=== PATIENT | female | born 1955 | race Two or more races ===

== ENCOUNTER 2022-09-25 11:25 | Inpatient (IN) | payer OTHER ==
[~2022-09-25] VITALS: Ht 162.6 cm; Wt 96.6 kg
[2022-09-26] MEDS ORDERED: CONZIP100 MG PO (11:31)
[2022-09-26] MEDS ORDERED: PROBIOTIC250 MG PO (11:32)
[2022-09-26] MEDS ORDERED: OMEGA 3-6-9 11200 M1 PO (11:32)
[2022-09-26] MEDS ORDERED: VITAMIN C100 MG PO (11:32)
[2022-09-26] MEDS ORDERED: B12 ACTIVE1000 MCG PO (11:32)
== END 2022-10-03 10:01 | disposition home or self-care (01) | DRG 741 ==
LOC: O/R 10-02 06:39 → SURH 10-02 09:45 → OB/GYN 10-02 17:49
PROVIDERS: ADMIT Obstetrics & Gynecology Gynecologic Oncology; ATTEND Obstetrics & Gynecology Gynecologic Oncology
PROC: 0UT74ZZ Resection of Bilateral Fallopian Tubes, Percutaneous Endoscopic Approach (ICD-10-PCS; 2022-10-02)
PROC: 0UT24ZZ Resection of Bilateral Ovaries, Percutaneous Endoscopic Approach (ICD-10-PCS; 2022-10-02)
PROC: 07BC4ZZ Excision of Pelvis Lymphatic, Percutaneous Endoscopic Approach (ICD-10-PCS; 2022-10-02)
PROC: 07BD4ZZ Excision of Aortic Lymphatic, Percutaneous Endoscopic Approach (ICD-10-PCS; 2022-10-02)
PROC: 0UT94ZZ Resection of Uterus, Percutaneous Endoscopic Approach (ICD-10-PCS; principal; 2022-10-02 09:45)
DX: C53.0 Malignant neoplasm of endocervix (principal)

== ENCOUNTER 2024-05-12 15:36 | Inpatient (IN) | payer OTHER ==
[~2024-05-12] VITALS: Ht 162.6 cm; Wt 72.6 kg
[~2024-05-12 15:36] MED LIST: B12 ACTIVE1000 MCG PO; CONZIP100 MG PO; OMEGA 3-6-9 11200 M1 PO; PROBIOTIC250 MG PO; VITAMIN C100 MG PO
--- NOTE | 2024-05-12 16:34 | NUR ---
PTE ALERTA Y ORIENTADA X3 REFIERE QUE FUE REFERIDA POR LA HEMATOLOGA DRA. ROSALEE MARIO. SE GAV[place] SV Y SE UBICA
[2024-05-12] MEDS ORDERED: PIPERACILLIN/TAZOBACTAM SODIUM 3.375 GM VIAL IV ONE ×2 (17:00→17:06)
[2024-05-12] MEDS ORDERED: FAMOtidine 10 MG/ML (4ML VIAL) IV ONE (17:00)
[2024-05-12] MEDS ORDERED: MEPERIDINE HCL/PF 25 MG/ML VIAL IV ONE (17:00)
[2024-05-12] MEDS ORDERED: FAMOTIDINE/PF 20 MG/2 ML VIAL ONE (17:06)
--- NOTE | 2024-05-12 17:40 | NUR ---
SE LE ORIENTA A PACIENTE SOBRE LA ORDEN MEDICA, REFIERE ENTENDER LAS MISMAS. SE CANALIZA Y SE LE COLOCA EL IVF'S, SE LE GAVIOTA LAS MUETRAS Y SE LE ADMINISTRAN LOS MEDICAMENTOS JANET LA ORDEN MEDICA.
[2024-05-12 18:16] LABS: ALBUMIN 2.2 gm/dL (3.4-5.0); BILIRUBIN TOTAL 0.71 mg/dL (0.3-1.2); CALCIUM 9.6 mg/dL (8.5-10.1); CREATININE SERUM 1.92 mg/dL (0.55-1.02); GFR 25.97; GLOBULINA 4.9 G/DL (2.4-3.5); POTASSIUM 4.88 mEq/L (3.5-5.1); TOTAL PROTEIN 7.1 gm/dL (6.4-8.2)
[2024-05-12 18:26] LABS: INR 1.21
[2024-05-12 18:42] LABS: HEMATOCRIT 26.3 % (36.0-45.00); MEAN CELL VOLUME 79.1 fL (80.00-100.00); MEAN CORPUSCULAR HGB CONC 32.8 g/dl (32.0-36.0); PLATELET COUNT 330 K/uL (150-450); RED BLOOD COUNT 3.33 M/uL (4.00-6.00)
[2024-05-12 18:43] LABS: MEAN CORPUSCULAR HEMOGLOBIN 25.8 pg (27.00-32.0); RED CELL DISTRIBUTION WIDTH 18.3 % (11.5-14.5)
[2024-05-12 18:45] LABS: HEMOGLOBIN 8.6 g/dL (12.0-15.00)
[2024-05-12 18:49] LABS: PARTIAL THROMBOPLASTIN TIME 41.7 SECONDS (22.0-34.0)
[2024-05-12] MEDS ORDERED: DOLOGESIC 500-1 EACH PO (20:33)
[2024-05-12 21:21] LABS: PH,URINE 5.5 (5.0-8.0); URINE APPEARANCE Turbid; URINE BILIRRUBIN Small (NEGATIVE); URINE BLOOD Large; URINE COLOR Dark Yellow; URINE GLUCOSE Negative (NEGATIVE); URINE KETONE Trace (NEGATIVE); URINE LEUKOCYTE Large; URINE NITRATE Negative
[2024-05-12 21:25] LABS: URINE EPITHELIAL CELLS 48.7 uL (0.0-38.8); URINE RBC 456.5 uL (0.0-20.8); URINE WBC 792.1 uL (0.0-23.2)
[2024-05-12 21:35] LABS: URINE BACTERIA > 9821.5 uL (0.0-1933); URINE PROTEIN 100 (NEGATIVE)
[2024-05-12] MEDS ORDERED: 0.9 % SODIUM CHLORIDE 1,000 ML IV SCH (22:30)
[2024-05-12] MEDS ORDERED: MORPHINE SULFATE 2 MG/ML SYRINGE IV PRN (22:45)
[2024-05-12] MEDS ORDERED: 0.9 % SODIUM CHLORIDE 1,000 ML IV ONE (22:45)
[2024-05-12] MEDS ORDERED: ACETAMINOPHEN 500 MG GEL..CAP PO PRN (22:45)
[2024-05-13] MEDS ORDERED: PIPERACILLIN/TAZOBACTAM SODIUM 2.25 GM in DEXTROSE 5 % IN WATER 50 ML IV SCH
[2024-05-13 01:51] VITALS: BP 100/67; O2SAT 100
[2024-05-13] MEDS ORDERED: ENOXAPARIN SODIUM 40 MG/0.4 ML SYRINGE SUBCUTANEO SCH (09:00)
[2024-05-13] MEDS ORDERED: IRON FUM,PS/FOLIC/BCOMP,C NO.9 1 CAP CAPSULE PO SCH (09:00)
[2024-05-13] MEDS ORDERED: FAMOTIDINE/PF 20 MG in 0.9 % SODIUM CHLORIDE 8 ML IV PUSH SCH (09:00)
[2024-05-13 09:33] VITALS: BP 85/50
[2024-05-13] MEDS ORDERED: 0.9 % SODIUM CHLORIDE 1,000 ML IV STA (09:43)
[2024-05-13 16:07] VITALS: BP 93/55; O2SAT 93
[2024-05-13] MEDS ORDERED: fentaNYL CITRATE 50 MCG/ML AMPUL IV PUSH ONE (17:15)
[2024-05-13] MEDS ORDERED: MIDAZOLAM HCL 2 MG/2 ML VIAL IV PUSH ONE (17:15)
[2024-05-13] MEDS ORDERED: MEROPENEM 500 MG/VIAL VIAL IV SCH (22:41)
[2024-05-14 01:27] VITALS: BP 100/54; O2SAT 99
[2024-05-14 08:33] LABS: ALBUMIN 1.6 gm/dL (3.4-5.0); BILIRUBIN TOTAL 0.6 mg/dL (0.3-1.2); CALCIUM 8.1 mg/dL (8.5-10.1); CREATININE SERUM 1.03 mg/dL (0.55-1.02); GFR 53.29; GLOBULINA 2.9 G/DL (2.4-3.5); MAGNESIUM 1.9 mg/dL (1.8-2.4); PHOSPHOROUS 2.8 mg/dL (2.5-4.9); POTASSIUM 3.73 mEq/L (3.5-5.1); TOTAL PROTEIN 4.5 gm/dL (6.4-8.2)
[2024-05-14 08:35] VITALS: BP 93/55; O2SAT 99
[2024-05-14] MEDS ORDERED: FUROsemide 20 MG/2 ML VIAL IV SCH (09:15)
[2024-05-14] MEDS ORDERED: AMINO ACIDS 1 EACH TABLET PO SCH (09:49)
[2024-05-14] MEDS ORDERED: IRON FUM,PS/FOLIC/BCOMP,C NO.9 1 CAP CAPSULE PO SCH (09:49)
[2024-05-14] MEDS ORDERED: RINGERS SOLUTION,LACTATED 1,000 ML IV SCH (10:00)
[2024-05-14 11:29] LABS: MEAN CELL VOLUME 79.8 fL (80.00-100.00); MEAN CORPUSCULAR HGB CONC 32.2 g/dl (32.0-36.0); RED BLOOD COUNT 2.72 M/uL (4.00-6.00); RED CELL DISTRIBUTION WIDTH 18.7 % (11.5-14.5)
[2024-05-14 11:30] LABS: MEAN CORPUSCULAR HEMOGLOBIN 25.7 pg (27.00-32.0)
[2024-05-14 11:31] LABS: HEMATOCRIT 21.7 % (36.0-45.00)
[2024-05-14 12:21] LABS: PLATELET COUNT 204 K/uL (150-450)
[2024-05-14 16:46] VITALS: BP 111/63; O2SAT 100
[2024-05-14] MEDS ORDERED: MEROPENEM 500 MG/VIAL VIAL IV SCH (18:00)
[2024-05-15 01:46] VITALS: BP 104/66; O2SAT 99
[2024-05-15 08:22] VITALS: BP 125/66; O2SAT 100
[2024-05-15] MEDS ORDERED: AA 4.25%/CAL/LYTES/DEXT 5% 1,000 ML PERIFERAL SCH (17:00)
[2024-05-15 17:24] VITALS: BP 101/57
[2024-05-15 17:36] LABS: MEAN CELL VOLUME 80.8 fL (80.00-100.00); MEAN CORPUSCULAR HGB CONC 33.8 g/dl (32.0-36.0); RED BLOOD COUNT 4.58 M/uL (4.00-6.00); RED CELL DISTRIBUTION WIDTH 18.4 % (11.5-14.5)
[2024-05-15 17:37] LABS: PLATELET COUNT 149 K/uL (150-450)
[2024-05-15 17:40] LABS: HEMOGLOBIN 12.5 g/dL (12.0-15.00); MEAN CORPUSCULAR HEMOGLOBIN 27.2 pg (27.00-32.0); PLT IN CITRATE 339 K/uL (150-450)
[2024-05-15 17:59] LABS: ALBUMIN 2.2 gm/dL (3.4-5.0); BILIRUBIN TOTAL 1.17 mg/dL (0.3-1.2); CHOL HDL RATIO 4.5 (0-5.0); CREATININE SERUM 0.79 mg/dL (0.55-1.02); GFR 72.37; GLOBULINA 4.2 G/DL (2.4-3.5); PHOSPHOROUS 3.1 mg/dL (2.5-4.9); POTASSIUM 3.07 mEq/L (3.5-5.1); TOTAL PROTEIN 6.4 gm/dL (6.4-8.2)
[2024-05-15 18:20] LABS: MAGNESIUM 1.2 mg/dL (1.8-2.4)
[2024-05-15] MEDS ORDERED: MAGNESIUM SULFATE IN WATER 100 ML IV ONE (22:00)
[2024-05-16 01:50] VITALS: BP 104/59; O2SAT 99
[2024-05-16 02:39] LABS: INR 1.11; PARTIAL THROMBOPLASTIN TIME 28.7 SECONDS (22.0-34.0)
[2024-05-16 02:46] LABS: ALBUMIN 1.9 gm/dL (3.4-5.0); BILIRUBIN TOTAL 0.75 mg/dL (0.3-1.2); BILIRUBIN,CONJUGATED 0.26 mg/dL (0.0-0.2); BILIRUBIN,UNCONJUGATED 0.49 mg/dL (0.0-0.6); CHOL HDL RATIO 3.8 (0-5.0); TOTAL PROTEIN 5.7 gm/dL (6.4-8.2)
[2024-05-16 04:25] LABS: CREATININE SERUM 0.64 mg/dL (0.55-1.02); GFR 92.28; POTASSIUM 3.14 mEq/L (3.5-5.1)
[2024-05-16 04:26] LABS: CALCIUM 8.6 mg/dL (8.5-10.1); PHOSPHOROUS 3.8 mg/dL (2.5-4.9); TOTAL PROTEIN 5.8 gm/dL (6.4-8.2)
[2024-05-16 04:27] LABS: ALBUMIN 1.9 gm/dL (3.4-5.0); BILIRUBIN TOTAL 0.71 mg/dL (0.3-1.2); GLOBULINA 3.9 G/DL (2.4-3.5); MAGNESIUM 1.3 mg/dL (1.8-2.4)
[2024-05-16 07:27] LABS: HEMATOCRIT 32.2 % (36.0-45.00); HEMOGLOBIN 10.7 g/dL (12.0-15.00); MEAN CELL VOLUME 81.4 fL (80.00-100.00); MEAN CORPUSCULAR HGB CONC 33.1 g/dl (32.0-36.0); RED BLOOD COUNT 3.96 M/uL (4.00-6.00); RED CELL DISTRIBUTION WIDTH 18.1 % (11.5-14.5)
[2024-05-16 07:28] LABS: PLATELET COUNT 69 K/uL (150-450)
[2024-05-16] MEDS ORDERED: MAGNESIUM SULFATE IN WATER 4 GM/100 ML PIGGYBACK IV SCH (07:30)
[2024-05-16 08:38] VITALS: BP 104/61; O2SAT 99
[2024-05-16] MEDS ORDERED: SOD FERRIC GLUC COMPLX/SUCROSE 62.5 MG in 0.9 % SODIUM CHLORIDE 50 ML IV SCH (09:00)
[2024-05-16] MEDS ORDERED: POTASSIUM CHLORIDE IN WATER 100 ML IV NR (13:00)
[2024-05-16 15:51] VITALS: BP 103/59; O2SAT 100
[2024-05-17 00:18] VITALS: BP 107/63; O2SAT 100
[2024-05-17 08:19] VITALS: BP 124/72; O2SAT 96
[2024-05-17] MEDS ORDERED: PANTOPRAZOLE SODIUM 40 MG/VIAL VIAL IV NR (14:00)
[2024-05-17 16:59] VITALS: BP 117/69; O2SAT 97
[2024-05-18 00:32] VITALS: BP 127/75; O2SAT 98
[2024-05-18 08:28] VITALS: BP 130/79; O2SAT 98
[2024-05-18 08:31] LABS: ALBUMIN 1.6 gm/dL (3.4-5.0); BILIRUBIN TOTAL 0.35 mg/dL (0.3-1.2); CALCIUM 8.2 mg/dL (8.5-10.1); CREATININE SERUM 0.34 mg/dL (0.55-1.02); GFR 191.47; GLOBULINA 3.5 G/DL (2.4-3.5); MAGNESIUM 1.6 mg/dL (1.8-2.4); PHOSPHOROUS 2.6 mg/dL (2.5-4.9); POTASSIUM 3.57 mEq/L (3.5-5.1); TOTAL PROTEIN 5.1 gm/dL (6.4-8.2)
[2024-05-18] MEDS ORDERED: PANTOPRAZOLE SODIUM 40 MG/VIAL VIAL IV SCH (09:00)
[2024-05-18] MEDS ORDERED: MAGNESIUM SULFATE IN WATER 50 ML IV NR (09:30)
[2024-05-18 16:05] VITALS: BP 115/63; O2SAT 98
[2024-05-18 21:44] LABS: HEMATOCRIT 36.4 % (36.0-45.00); HEMOGLOBIN 11.9 g/dL (12.0-15.00); MEAN CELL VOLUME 82.5 fL (80.00-100.00); MEAN CORPUSCULAR HGB CONC 32.7 g/dl (32.0-36.0); RED BLOOD COUNT 4.42 M/uL (4.00-6.00); RED CELL DISTRIBUTION WIDTH 19.2 % (11.5-14.5)
[2024-05-18 21:52] LABS: PLATELET COUNT 144 K/uL (150-450)
[2024-05-19 01:36] VITALS: BP 134/75; O2SAT 97
[2024-05-19 09:03] VITALS: BP 98/57; O2SAT 98
[2024-05-19] MEDS ORDERED: ENOXAPARIN SODIUM 80 MG/0.8 ML SYRINGE SUBCUTANEO SCH (10:54)
[2024-05-19 17:35] VITALS: BP 121/70; O2SAT 98
[2024-05-19] MEDS ORDERED: ENOXAPARIN SODIUM 60 MG/0.6 ML SYRINGE SUBCUTANEO SCH (21:00)
[2024-05-20 00:25] VITALS: BP 136/69; O2SAT 98
[2024-05-20 05:49] LABS: ALBUMIN 1.6 gm/dL (3.4-5.0); BILIRUBIN TOTAL 0.44 mg/dL (0.3-1.2); CALCIUM 8.5 mg/dL (8.5-10.1); CREATININE SERUM 0.34 mg/dL (0.55-1.02); GFR 191.47; GLOBULINA 3.7 G/DL (2.4-3.5); MAGNESIUM 1.5 mg/dL (1.8-2.4); PHOSPHOROUS 2.9 mg/dL (2.5-4.9); POTASSIUM 3.76 mEq/L (3.5-5.1); TOTAL PROTEIN 5.3 gm/dL (6.4-8.2)
[2024-05-20 06:16] LABS: HEMOGLOBIN 10.6 g/dL (12.0-15.00); MEAN CELL VOLUME 81.7 fL (80.00-100.00); MEAN CORPUSCULAR HEMOGLOBIN 27.2 pg (27.00-32.0); MEAN CORPUSCULAR HGB CONC 33.3 g/dl (32.0-36.0); PLATELET COUNT 185 K/uL (150-450); RED BLOOD COUNT 3.91 M/uL (4.00-6.00); RED CELL DISTRIBUTION WIDTH 19.2 % (11.5-14.5)
[2024-05-20 07:42] VITALS: BP 126/69; O2SAT 96
[2024-05-20] MEDS ORDERED: MAGNESIUM SULFATE IN WATER 50 ML IV NR (12:00)
[2024-05-20 16:13] VITALS: BP 112/69; O2SAT 97
[2024-05-20] MEDS ORDERED: IOVERSOL 320 MG/ML - 50 ML VIAL IV ONE ×2 (18:39→22:15)
[2024-05-20] MEDS ORDERED: BUPIVACAINE HCL/MPF 0.5% 30ML VIAL ONE (18:40)
[2024-05-20] MEDS ORDERED: BUPIVACAINE HCL 30 ML VIAL IJ ONE (22:15)
[2024-05-21 04:14] VITALS: BP 161/66; O2SAT 99
[2024-05-21 08:21] VITALS: BP 129/71; O2SAT 97
[2024-05-21] MEDS ORDERED: MAGNESIUM SULFATE IN WATER 50 ML IV NR (12:00)
[2024-05-21 16:01] VITALS: BP 126/80; O2SAT 98
[2024-05-22 00:07] VITALS: BP 118/55; O2SAT 95
[2024-05-22 09:31] VITALS: BP 128/75; O2SAT 99
[2024-05-22 15:45] VITALS: BP 145/84; O2SAT 96
[2024-05-23 00:35] VITALS: BP 131/76; O2SAT 96
[2024-05-23 06:36] LABS: HEMATOCRIT 31.8 % (36.0-45.00); HEMOGLOBIN 10.5 g/dL (12.0-15.00); MEAN CELL VOLUME 82.6 fL (80.00-100.00); MEAN CORPUSCULAR HEMOGLOBIN 27.3 pg (27.00-32.0); PLATELET COUNT 282 K/uL (150-450); RED BLOOD COUNT 3.84 M/uL (4.00-6.00); RED CELL DISTRIBUTION WIDTH 18.5 % (11.5-14.5)
[2024-05-23 06:48] LABS: INR 1.33; PARTIAL THROMBOPLASTIN TIME 37.3 SECONDS (22.0-34.0); PROTHROMBIN TIME 14.2 SECONDS (9.0-11.5)
[2024-05-23 07:29] LABS: ALBUMIN 1.9 gm/dL (3.4-5.0); BILIRUBIN TOTAL 0.44 mg/dL (0.3-1.2); CALCIUM 8.8 mg/dL (8.5-10.1); CREATININE SERUM 0.34 mg/dL (0.55-1.02); GFR 191.47; GLOBULINA 3.8 G/DL (2.4-3.5); MAGNESIUM 1.7 mg/dL (1.8-2.4); PHOSPHOROUS 3.1 mg/dL (2.5-4.9); POTASSIUM 3.75 mEq/L (3.5-5.1); TOTAL PROTEIN 5.7 gm/dL (6.4-8.2)
[2024-05-23 07:30] LABS: ALBUMIN 1.9 gm/dL (3.4-5.0); BILIRUBIN TOTAL 0.48 mg/dL (0.3-1.2); BILIRUBIN,CONJUGATED 0.16 mg/dL (0.0-0.2); BILIRUBIN,UNCONJUGATED 0.32 mg/dL (0.0-0.6); CHOL HDL RATIO 3.1 (0-5.0); TOTAL PROTEIN 5.7 gm/dL (6.4-8.2)
[2024-05-23 08:12] LABS: UREA CLEARANCE 10.8 ML/MIN
[2024-05-24 16:43] VITALS: BP 128/72; O2SAT 96
[2024-05-24 23:45] VITALS: BP 106/65; O2SAT 95
[2024-05-25 05:49] LABS: ALBUMIN 2.1 gm/dL (3.4-5.0); BILIRUBIN TOTAL 0.64 mg/dL (0.3-1.2); CALCIUM 8.9 mg/dL (8.5-10.1); CREATININE SERUM 0.35 mg/dL (0.55-1.02); GFR 185.17; GLOBULINA 3.8 G/DL (2.4-3.5); HEMATOCRIT 32.1 % (36.0-45.00); HEMOGLOBIN 10.7 g/dL (12.0-15.00); MAGNESIUM 1.8 mg/dL (1.8-2.4); MEAN CELL VOLUME 83.4 fL (80.00-100.00); MEAN CORPUSCULAR HEMOGLOBIN 27.9 pg (27.00-32.0); MEAN CORPUSCULAR HGB CONC 33.4 g/dl (32.0-36.0); PHOSPHOROUS 3.3 mg/dL (2.5-4.9); PLATELET COUNT 258 K/uL (150-450); POTASSIUM 4.09 mEq/L (3.5-5.1); RED BLOOD COUNT 3.85 M/uL (4.00-6.00); RED CELL DISTRIBUTION WIDTH 18.8 % (11.5-14.5); TOTAL PROTEIN 5.9 gm/dL (6.4-8.2)
[2024-05-25 08:00] VITALS: BP 123/79; O2SAT 97
[2024-05-25 18:25] VITALS: BP 121/75; O2SAT 95
[2024-05-26 01:45] VITALS: BP 117/68; O2SAT 96
[2024-05-26 07:41] VITALS: BP 110/69
[2024-05-26 16:00] VITALS: BP 108/74; O2SAT 95
[2024-05-26] MEDS ORDERED: PANTOPRAZOLE SODIUM 40 MG/VIAL VIAL IV SCH (17:35)
[2024-05-27 01:44] VITALS: BP 98/63; O2SAT 96
[2024-05-27 06:29] LABS: HEMATOCRIT 31.4 % (36.0-45.00); HEMOGLOBIN 10.6 g/dL (12.0-15.00); MEAN CELL VOLUME 82.2 fL (80.00-100.00); MEAN CORPUSCULAR HEMOGLOBIN 27.7 pg (27.00-32.0); MEAN CORPUSCULAR HGB CONC 33.7 g/dl (32.0-36.0); PLATELET COUNT 277 K/uL (150-450); RED BLOOD COUNT 3.82 M/uL (4.00-6.00); RED CELL DISTRIBUTION WIDTH 19.5 % (11.5-14.5)
[2024-05-27 06:52] LABS: ALBUMIN 2.2 gm/dL (3.4-5.0); BILIRUBIN TOTAL 0.96 mg/dL (0.3-1.2); CALCIUM 8.9 mg/dL (8.5-10.1); CREATININE SERUM 0.52 mg/dL (0.55-1.02); GFR 117.26; GLOBULINA 3.8 G/DL (2.4-3.5); MAGNESIUM 1.6 mg/dL (1.8-2.4); PHOSPHOROUS 3.2 mg/dL (2.5-4.9); POTASSIUM 4.23 mEq/L (3.5-5.1)
[2024-05-27 08:24] VITALS: BP 95/59; O2SAT 96
[2024-05-27] MEDS ORDERED: RINGERS SOLUTION,LACTATED 1,000 ML IV STA (10:14)
[2024-05-27] MEDS ORDERED: MAGNESIUM SULFATE IN WATER 50 ML IV NR (10:45)
[2024-05-27 10:49] LABS: ob POSITIVE (NEGATIVE)
[2024-05-27 17:19] VITALS: BP 104/61; O2SAT 97
[2024-05-27] MEDS ORDERED: PANTOPRAZOLE SODIUM 40 MG/VIAL VIAL IV SCH (21:00)
[2024-05-28 02:05] VITALS: BP 132/77; O2SAT 98
[2024-05-28 07:47] LABS: ALBUMIN 2.3 gm/dL (3.4-5.0); BILIRUBIN TOTAL 0.57 mg/dL (0.3-1.2); CALCIUM 8.7 mg/dL (8.5-10.1); CREATININE SERUM 0.57 mg/dL (0.55-1.02); GFR 105.48; GLOBULINA 3.7 G/DL (2.4-3.5); POTASSIUM 4.5 mEq/L (3.5-5.1)
[2024-05-28 08:03] LABS: HEMATOCRIT 31.3 % (36.0-45.00); HEMOGLOBIN 10.5 g/dL (12.0-15.00); MEAN CELL VOLUME 83.4 fL (80.00-100.00); MEAN CORPUSCULAR HEMOGLOBIN 28.1 pg (27.00-32.0); MEAN CORPUSCULAR HGB CONC 33.7 g/dl (32.0-36.0); PLATELET COUNT 290 K/uL (150-450); RED BLOOD COUNT 3.76 M/uL (4.00-6.00)
[2024-05-28 08:58] VITALS: BP 95/58; O2SAT 98
[2024-05-28] MEDS ORDERED: RINGERS SOLUTION,LACTATED 1,000 ML IV SCH (14:45)
[2024-05-28 15:51] VITALS: BP 108/62; O2SAT 96
[2024-05-28] MEDS ORDERED: AA 4.25%/CAL/LYTES/DEXT 5% 1,000 ML PERIFERAL SCH (17:00)
[2024-05-28] MEDS ORDERED: ACETAMINOPHEN 500 MG GEL..CAP PO PRN (22:45)
[2024-05-29 02:36] VITALS: BP 90/52; O2SAT 96
[2024-05-29 09:46] VITALS: BP 120/62; BP 20/62
[2024-05-29 15:57] VITALS: BP 111/56; O2SAT 98
[2024-05-30 01:13] VITALS: BP 126/58
[2024-05-30 07:48] LABS: ALBUMIN 2.2 gm/dL (3.4-5.0); BILIRUBIN TOTAL 0.58 mg/dL (0.3-1.2); BILIRUBIN,CONJUGATED 0.19 mg/dL (0.0-0.2); BILIRUBIN,UNCONJUGATED 0.39 mg/dL (0.0-0.6); CALCIUM 9.5 mg/dL (8.5-10.1); CHOL HDL RATIO 3.7 (0-5.0); CREATININE SERUM 0.38 mg/dL (0.55-1.02); GFR 168.41; GLOBULINA 3.8 G/DL (2.4-3.5); MAGNESIUM 1.6 mg/dL (1.8-2.4); PHOSPHOROUS 3.4 mg/dL (2.5-4.9); POTASSIUM 3.97 mEq/L (3.5-5.1)
[2024-05-30 08:54] VITALS: BP 128/69; O2SAT 96
[2024-05-30] MEDS ORDERED: METHYLPREDNISOLONE SOD SUCC 40 MG VIAL ONE (13:20)
[2024-05-30] MEDS ORDERED: DIPHENHYDRAMINE HCL 50 MG/ML VIAL 1ML ONE (13:20)
[2024-05-30] MEDS ORDERED: METHYLPREDNISOLONE SOD SUCC 40 MG VIAL IV NR (14:00)
[2024-05-30] MEDS ORDERED: DIPHENHYDRAMINE HCL 50 MG/ML VIAL 1ML IV NR (14:00)
[2024-05-30 16:33] VITALS: BP 136/76; O2SAT 97
[2024-05-30] MEDS ORDERED: MAGNESIUM SULFATE IN WATER 50 ML IV ONE (17:15)
[2024-05-31 00:43] VITALS: BP 103/61; O2SAT 97
[2024-05-31 06:43] LABS: INR 1.2; PARTIAL THROMBOPLASTIN TIME 33.2 SECONDS (22.0-34.0); PROTHROMBIN TIME 12.9 SECONDS (9.0-11.5)
[2024-05-31 06:46] LABS: BLOOD UREA NITROGEN 10 mg/dL (7-18)
[2024-05-31 06:50] LABS: HEMATOCRIT 32.3 % (36.0-45.00); HEMOGLOBIN 10.8 g/dL (12.0-15.00); MEAN CELL VOLUME 83.3 fL (80.00-100.00); MEAN CORPUSCULAR HEMOGLOBIN 27.8 pg (27.00-32.0); MEAN CORPUSCULAR HGB CONC 33.3 g/dl (32.0-36.0); PLATELET COUNT 358 K/uL (150-450); RED BLOOD COUNT 3.88 M/uL (4.00-6.00); RED CELL DISTRIBUTION WIDTH 19.5 % (11.5-14.5)
[2024-05-31 08:43] VITALS: BP 120/71; O2SAT 97
[2024-05-31 17:02] VITALS: BP 110/62; O2SAT 96
[2024-06-01 01:01] VITALS: BP 99/58; O2SAT 98
[2024-06-01 08:35] VITALS: BP 142/82; O2SAT 98
[2024-06-01 16:37] VITALS: BP 118/66; O2SAT 98
[2024-06-02 01:22] VITALS: BP 118/63; O2SAT 99
[2024-06-02 07:05] LABS: HEMATOCRIT 30.6 % (36.0-45.00); HEMOGLOBIN 10.5 g/dL (12.0-15.00); MEAN CELL VOLUME 83.3 fL (80.00-100.00); MEAN CORPUSCULAR HEMOGLOBIN 28.5 pg (27.00-32.0); MEAN CORPUSCULAR HGB CONC 34.2 g/dl (32.0-36.0); PLATELET COUNT 389 K/uL (150-450); RED BLOOD COUNT 3.67 M/uL (4.00-6.00); RED CELL DISTRIBUTION WIDTH 20.2 % (11.5-14.5)
[2024-06-02 07:39] LABS: ALBUMIN 2.2 gm/dL (3.4-5.0); BILIRUBIN TOTAL 0.46 mg/dL (0.3-1.2); CREATININE SERUM 0.42 mg/dL (0.55-1.02); GFR 150.04; GLOBULINA 3.4 G/DL (2.4-3.5); MAGNESIUM 1.6 mg/dL (1.8-2.4); PHOSPHOROUS 3.6 mg/dL (2.5-4.9); POTASSIUM 3.73 mEq/L (3.5-5.1); TOTAL PROTEIN 5.6 gm/dL (6.4-8.2)
[2024-06-02 09:14] VITALS: BP 125/66; O2SAT 98
[2024-06-02] MEDS ORDERED: MAGNESIUM SULFATE IN WATER 50 ML IV NR (12:00)
[2024-06-02 17:41] VITALS: BP 115/60; O2SAT 96
[2024-06-03 00:54] VITALS: BP 118/68; O2SAT 96
[2024-06-03 09:29] VITALS: BP 118/85; O2SAT 97
[2024-06-03] MEDS ORDERED: PANTOPRAZOLE SODIUM 40 MG/VIAL VIAL IV STA (12:09)
[2024-06-03 16:21] VITALS: BP 119/67; O2SAT 97
[2024-06-03] MEDS ORDERED: AA 4.25%/CAL/LYTES/DEXT 5% 1,000 ML PERIFERAL SCH (17:00)
[2024-06-03] MEDS ORDERED: AMINO ACIDS 4.25 %/DEXTROSE 5% 1,000 ML PERIFERAL SCH (17:00)
[2024-06-03] MEDS ORDERED: PANTOPRAZOLE SODIUM 40 MG/VIAL VIAL IV SCH (21:00)
[2024-06-04 01:00] VITALS: BP 112/64; O2SAT 97
[2024-06-04 08:12] LABS: HEMATOCRIT 30.8 % (36.0-45.00); HEMOGLOBIN 10.5 g/dL (12.0-15.00); MEAN CELL VOLUME 83.5 fL (80.00-100.00); MEAN CORPUSCULAR HEMOGLOBIN 28.5 pg (27.00-32.0); MEAN CORPUSCULAR HGB CONC 34.1 g/dl (32.0-36.0); PLATELET COUNT 375 K/uL (150-450); RED BLOOD COUNT 3.69 M/uL (4.00-6.00); RED CELL DISTRIBUTION WIDTH 20.5 % (11.5-14.5)
[2024-06-04 08:13] VITALS: BP 120/69; O2SAT 97
[2024-06-04 08:36] LABS: ALBUMIN 2.2 gm/dL (3.4-5.0); BILIRUBIN TOTAL 0.66 mg/dL (0.3-1.2); CALCIUM 9.1 mg/dL (8.5-10.1); CREATININE SERUM 0.42 mg/dL (0.55-1.02); GFR 150.04; GLOBULINA 3.3 G/DL (2.4-3.5); MAGNESIUM 1.6 mg/dL (1.8-2.4); PHOSPHOROUS 3.3 mg/dL (2.5-4.9); POTASSIUM 3.89 mEq/L (3.5-5.1); TOTAL PROTEIN 5.5 gm/dL (6.4-8.2)
[2024-06-04] MEDS ORDERED: MAGNESIUM SULFATE IN WATER 50 ML IV NR (10:30)
[2024-06-04 17:09] VITALS: BP 126/71
[2024-06-05 01:48] VITALS: BP 117/62; O2SAT 96
[2024-06-05 07:43] VITALS: BP 147/74; O2SAT 96
[2024-06-05 16:54] VITALS: BP 133/76
[2024-06-05] MEDS ORDERED: BENZONATATE 100 MG CAPSULE PO SCH (17:00)
[2024-06-06 02:58] VITALS: BP 135/79; O2SAT 97
[2024-06-06 06:26] LABS: HEMATOCRIT 31.8 % (36.0-45.00); HEMOGLOBIN 10.7 g/dL (12.0-15.00); MEAN CELL VOLUME 84.5 fL (80.00-100.00); MEAN CORPUSCULAR HEMOGLOBIN 28.5 pg (27.00-32.0); MEAN CORPUSCULAR HGB CONC 33.7 g/dl (32.0-36.0); PLATELET COUNT 334 K/uL (150-450); RED BLOOD COUNT 3.77 M/uL (4.00-6.00); RED CELL DISTRIBUTION WIDTH 20.5 % (11.5-14.5)
[2024-06-06 06:36] LABS: INR 1.26; PARTIAL THROMBOPLASTIN TIME 30.2 SECONDS (22.0-34.0); PROTHROMBIN TIME 13.5 SECONDS (9.0-11.5)
[2024-06-06 06:49] LABS: ALBUMIN 2.3 gm/dL (3.4-5.0); BILIRUBIN TOTAL 0.64 mg/dL (0.3-1.2); BILIRUBIN,CONJUGATED 0.27 mg/dL (0.0-0.2); BILIRUBIN,UNCONJUGATED 0.37 mg/dL (0.0-0.6); CALCIUM 9.4 mg/dL (8.5-10.1); CHOL HDL RATIO 4.4 (0-5.0); CREATININE SERUM 0.5 mg/dL (0.55-1.02); GFR 122.69; GLOBULINA 3.3 G/DL (2.4-3.5); MAGNESIUM 1.5 mg/dL (1.8-2.4); POTASSIUM 3.79 mEq/L (3.5-5.1); TOTAL PROTEIN 5.6 gm/dL (6.4-8.2)
[2024-06-06 07:24] LABS: URINE EPITHELIAL CELLS 6.8 uL (0.0-38.8); URINE RBC 1251.4 uL (0.0-20.8); URINE WBC 45.4 uL (0.0-23.2)
[2024-06-06 08:13] LABS: URINE BILIRRUBIN SMALL (NEGATIVE); URINE BLOOD LARGE; URINE GLUCOSE NEGATIVE (NEGATIVE); URINE KETONE NEGATIVE (NEGATIVE); URINE LEUKOCYTE NEGATIVE; URINE NITRATE NEGATIVE; URINE PROTEIN NEGATIVE (NEGATIVE)
[2024-06-06 08:14] VITALS: BP 136/60
[2024-06-06 08:14] LABS: URINE APPEARANCE CLEAR; URINE COLOR YELLOW
[2024-06-06 08:16] LABS: URINE CAST 0.14 uL (0.0-1.40)
[2024-06-06 09:56] LABS: UREA CLEARANCE 11.7 ML/MIN
[2024-06-06] MEDS ORDERED: MAGNESIUM SULFATE IN WATER 4 GM/100 ML PIGGYBACK IV STA (10:35)
[2024-06-06 16:10] VITALS: BP 104/60; O2SAT 98
[2024-06-07 02:58] VITALS: BP 99/57; O2SAT 97
[2024-06-07 08:50] VITALS: BP 122/70; O2SAT 99
[2024-06-07 15:20] VITALS: BP 135/77; O2SAT 98
[2024-06-08 03:06] VITALS: BP 114/59; O2SAT 99
[2024-06-08 05:08] LABS: HEMATOCRIT 31.6 % (36.0-45.00); MEAN CELL VOLUME 84.6 fL (80.00-100.00); MEAN CORPUSCULAR HGB CONC 33.4 g/dl (32.0-36.0); PLATELET COUNT 280 K/uL (150-450); RED BLOOD COUNT 3.74 M/uL (4.00-6.00); RED CELL DISTRIBUTION WIDTH 20.8 % (11.5-14.5)
[2024-06-08 05:17] LABS: HEMOGLOBIN 10.6 g/dL (12.0-15.00); MEAN CORPUSCULAR HEMOGLOBIN 28.3 pg (27.00-32.0)
[2024-06-08 05:38] LABS: ALBUMIN 2.3 gm/dL (3.4-5.0); BILIRUBIN TOTAL 0.59 mg/dL (0.3-1.2); CREATININE SERUM 0.49 mg/dL (0.55-1.02); GFR 125.59; GLOBULINA 3.2 G/DL (2.4-3.5); MAGNESIUM 1.7 mg/dL (1.8-2.4); PHOSPHOROUS 3.1 mg/dL (2.5-4.9); POTASSIUM 3.7 mEq/L (3.5-5.1); TOTAL PROTEIN 5.5 gm/dL (6.4-8.2)
[2024-06-08 09:21] VITALS: BP 129/55; O2SAT 98
[2024-06-08] MEDS ORDERED: SODIUM CHLORIDE 0.45 % 1,000 ML IV SCH (10:45)
[2024-06-08] MEDS ORDERED: MAGNESIUM SULFATE IN WATER 50 ML IV NR (10:45)
[2024-06-08 17:50] VITALS: BP 100/58; O2SAT 97
[2024-06-09] VITALS: BP 106/58; O2SAT 96
[2024-06-09] MEDS ORDERED: AMINO ACIDS/PROTEIN HYDROLYS 30 ML BLIST.PACK PO SCH (09:00)
[2024-06-09 09:42] VITALS: BP 125/60; O2SAT 97
[2024-06-09 18:09] VITALS: BP 122/76; O2SAT 100
[2024-06-10 03:04] VITALS: BP 121/67
[2024-06-10 09:44] VITALS: BP 112/60; O2SAT 100
[2024-06-10] MEDS ORDERED: LIDOCAINE HCL 1%/EPINEPHRINE 20ML VIAL IJ ONE (12:11)
[2024-06-10] MEDS ORDERED: BUPIVACAINE HCL/MPF 0.5% 30ML VIAL ONE (12:11)
[2024-06-10] MEDS ORDERED: METRONIDAZOLE/SODIUM CHLORIDE 500 MG/100 ML PIGGYBACK IV ONE (12:12)
[2024-06-10] MEDS ORDERED: CEFTRIAXONE SODIUM 2,000 MG VIAL ONE (12:12)
[2024-06-10] MEDS ORDERED: MORPHINE SULFATE 4 MG/ML CARTRIDGE IV PRN (14:45)
[2024-06-10] MEDS ORDERED: OxyCODONE HCL 5 MG TABLET (ROXICODONE) PO PRN (14:45)
[2024-06-10] MEDS ORDERED: ONDANSETRON HCL 2 MG/ML VIAL IV PRN (14:45)
[2024-06-10] MEDS ORDERED: LACTOBACILLUS ACIDOPHILUS 1 CAP CAP PO SCH (17:00)
[2024-06-10] MEDS ORDERED: HYOSCYAMINE SULFATE 0.125 MG TAB.SUBL SL SCH (17:00)
[2024-06-10] MEDS ORDERED: GABAPENTIN 300 MG CAPSULE PO SCH (17:00)
[2024-06-10] MEDS ORDERED: TAMSULOSIN HCL 0.4 MG CAP PO SCH (17:00)
[2024-06-10] MEDS ORDERED: ACETAMINOPHEN 500 MG GEL..CAP PO SCH (18:00)
[2024-06-10 18:10] VITALS: BP 106/72; O2SAT 96
[2024-06-11 00:44] VITALS: BP 116/57
[2024-06-11 07:59] LABS: HEMATOCRIT 32.6 % (36.0-45.00); HEMOGLOBIN 10.7 g/dL (12.0-15.00); MEAN CORPUSCULAR HEMOGLOBIN 28.2 pg (27.00-32.0); MEAN CORPUSCULAR HGB CONC 32.8 g/dl (32.0-36.0); PLATELET COUNT 209 K/uL (150-450); RED BLOOD COUNT 3.79 M/uL (4.00-6.00); RED CELL DISTRIBUTION WIDTH 20.9 % (11.5-14.5)
[2024-06-11 08:06] LABS: ALBUMIN 2.3 gm/dL (3.4-5.0); BILIRUBIN TOTAL 0.69 mg/dL (0.3-1.2); CALCIUM 9.1 mg/dL (8.5-10.1); CREATININE SERUM 0.61 mg/dL (0.55-1.02); GFR 97.53; GLOBULINA 3.3 G/DL (2.4-3.5); MAGNESIUM 1.5 mg/dL (1.8-2.4); PHOSPHOROUS 3.5 mg/dL (2.5-4.9); POTASSIUM 4.36 mEq/L (3.5-5.1); TOTAL PROTEIN 5.6 gm/dL (6.4-8.2)
[2024-06-11 08:58] VITALS: BP 104/58; O2SAT 96
[2024-06-11] MEDS ORDERED: MAGNESIUM SULFATE IN WATER 50 ML IV NR (11:00)
[2024-06-11] MEDS ORDERED: ENOXAPARIN SODIUM 40 MG/0.4 ML SYRINGE SUBCUTANEO NR (12:00)
[2024-06-11 16:47] VITALS: BP 94/60; O2SAT 96
[2024-06-12 00:34] VITALS: BP 95/50
[2024-06-12 08:58] VITALS: BP 105/62; O2SAT 95
[2024-06-12] MEDS ORDERED: ENOXAPARIN SODIUM 40 MG/0.4 ML SYRINGE SUBCUTANEO SCH (09:00)
[2024-06-12 16:33] VITALS: BP 118/71; O2SAT 100
[2024-06-13 01:42] VITALS: BP 106/54
[2024-06-13 06:37] LABS: HEMATOCRIT 30.3 % (36.0-45.00); HEMOGLOBIN 10.1 g/dL (12.0-15.00); MEAN CELL VOLUME 85.7 fL (80.00-100.00); MEAN CORPUSCULAR HEMOGLOBIN 28.5 pg (27.00-32.0); MEAN CORPUSCULAR HGB CONC 33.3 g/dl (32.0-36.0); PLATELET COUNT 198 K/uL (150-450); RED BLOOD COUNT 3.53 M/uL (4.00-6.00); RED CELL DISTRIBUTION WIDTH 20.5 % (11.5-14.5)
[2024-06-13 07:00] LABS: BILIRUBIN TOTAL 0.5 mg/dL (0.3-1.2); CALCIUM 8.5 mg/dL (8.5-10.1); CREATININE SERUM 0.63 mg/dL (0.55-1.02); GFR 93.97; GLOBULINA 3.2 G/DL (2.4-3.5); MAGNESIUM 1.6 mg/dL (1.8-2.4); PHOSPHOROUS 3.1 mg/dL (2.5-4.9); POTASSIUM 4.29 mEq/L (3.5-5.1); TOTAL PROTEIN 5.2 gm/dL (6.4-8.2)
[2024-06-13] MEDS ORDERED: MAGNESIUM SULFATE IN WATER 2 GM/50 ML PIGGYBAG IV NR (08:30)
[2024-06-13 09:17] VITALS: BP 115/72; O2SAT 96
[2024-06-13] MEDS ORDERED: BENZONATATE 200 MG CAPSULE PO SCH (17:00)
[2024-06-13 18:09] VITALS: BP 109/59
[2024-06-13] MEDS ORDERED: OxyCODONE HCL 5 MG TABLET (ROXICODONE) PO PRN (18:45)
[2024-06-14 01:12] VITALS: BP 92/56
[2024-06-14 05:02] LABS: HEMATOCRIT 30.4 % (36.0-45.00); HEMOGLOBIN 10.2 g/dL (12.0-15.00); MEAN CELL VOLUME 85.1 fL (80.00-100.00); MEAN CORPUSCULAR HEMOGLOBIN 28.5 pg (27.00-32.0); MEAN CORPUSCULAR HGB CONC 33.5 g/dl (32.0-36.0); PLATELET COUNT 194 K/uL (150-450); RED BLOOD COUNT 3.57 M/uL (4.00-6.00); RED CELL DISTRIBUTION WIDTH 20.3 % (11.5-14.5)
[2024-06-14 05:25] LABS: BILIRUBIN TOTAL 0.76 mg/dL (0.3-1.2); CALCIUM 8.5 mg/dL (8.5-10.1); CREATININE SERUM 0.52 mg/dL (0.55-1.02); GFR 117.26; GLOBULINA 3.3 G/DL (2.4-3.5); MAGNESIUM 1.5 mg/dL (1.8-2.4); POTASSIUM 3.72 mEq/L (3.5-5.1); TOTAL PROTEIN 5.3 gm/dL (6.4-8.2)
[2024-06-14 08:32] VITALS: BP 115/60; O2SAT 97
[2024-06-14] MEDS ORDERED: DIPHENHYDRAMINE HCL 50 MG/ML VIAL 1ML IV NR (09:30)
[2024-06-14] MEDS ORDERED: MAGNESIUM SULFATE IN WATER 4 GM/100 ML PIGGYBACK IV NR (12:00)
[2024-06-14 16:23] VITALS: BP 94/58; O2SAT 98
[2024-06-14] MEDS ORDERED: METHYLPREDNISOLONE SOD SUCC 40 MG VIAL IV NR (19:45)
[2024-06-14] MEDS ORDERED: ENOXAPARIN SODIUM 80 MG/0.8 ML SYRINGE SUBCUTANEO STA (19:47)
[2024-06-15 01:38] VITALS: BP 111/61
[2024-06-15 08:43] VITALS: BP 99/61; O2SAT 98
[2024-06-15] MEDS ORDERED: RIVAROXABAN 20 MG TABLET PO SCH (09:00)
[2024-06-15 16:27] VITALS: BP 101/62
[2024-06-16 01:40] VITALS: BP 110/64; O2SAT 100
[2024-06-16 08:15] VITALS: BP 115/63
[2024-06-16 13:03] LABS: HEMATOCRIT 32.3 % (36.0-45.00); HEMOGLOBIN 10.6 g/dL (12.0-15.00); MEAN CELL VOLUME 86.4 fL (80.00-100.00); MEAN CORPUSCULAR HEMOGLOBIN 28.3 pg (27.00-32.0); MEAN CORPUSCULAR HGB CONC 32.7 g/dl (32.0-36.0); PLATELET COUNT 247 K/uL (150-450); RED BLOOD COUNT 3.73 M/uL (4.00-6.00)
[2024-06-16 20:59] VITALS: BP 116/63
[2024-06-17 00:45] VITALS: BP 111/66; O2SAT 99
[2024-06-17 09:04] VITALS: BP 125/73; O2SAT 99
[2024-06-17] MEDS ORDERED: LEVSIN0.125 MG PO (11:13)
[2024-06-17] MEDS ORDERED: TAMS0.4C PO (11:14)
[2024-06-17] MEDS ORDERED: INTEGRA PLUS C1 EACH PO (11:14)
[2024-06-17] MEDS ORDERED: GABAPENTIN300 MG PO (11:14)
[2024-06-17] MEDS ORDERED: PROTEINEX-18 LI30 ML PO (11:15)
[2024-06-17] MEDS ORDERED: TRAM1TAB98 PO (11:15)
== END 2024-06-17 18:32 | disposition home or self-care (01) | DRG 853 ==
LOC: ER 15:38 → MEDI 22:34 → SEC-K 22:34 → MEDI 05-13 00:44
PROVIDERS: General Practice; Internal Medicine; Surgery; ADMIT Internal Medicine; ATTEND Internal Medicine
PROC: BW21ZZZ Computerized Tomography (CT Scan) of Abdomen and Pelvis (ICD-10-PCS; 2024-05-12)
PROC: 0W9J30Z Drainage of Pelvic Cavity with Drainage Device, Percutaneous Approach (ICD-10-PCS; 2024-05-13)
PROC: 0W9F30Z Drainage of Abdominal Wall with Drainage Device, Percutaneous Approach (ICD-10-PCS; 2024-05-13)
PROC: B34KZZZ Ultrasonography of Bilateral Upper Extremity Arteries (ICD-10-PCS; 2024-05-14)
PROC: B44HZZZ Ultrasonography of Bilateral Lower Extremity Arteries (ICD-10-PCS; 2024-05-14)
PROC: 30233N1 Transfusion of Nonautologous Red Blood Cells into Peripheral Vein, Percutaneous Approach (ICD-10-PCS; 2024-05-14)
PROC: 02HV33Z Insertion of Infusion Device into Superior Vena Cava, Percutaneous Approach (ICD-10-PCS; 2024-05-17)
PROC: 3E0436Z Introduction of Nutritional Substance into Central Vein, Percutaneous Approach (ICD-10-PCS; 2024-05-17)
PROC: 06PY3DZ Removal of Intraluminal Device from Lower Vein, Percutaneous Approach (ICD-10-PCS; 2024-05-20)
PROC: 0W2FX0Z Change Drainage Device in Abdominal Wall, External Approach (ICD-10-PCS; 2024-05-20)
PROC: 06H03DZ Insertion of Intraluminal Device into Inferior Vena Cava, Percutaneous Approach (ICD-10-PCS; 2024-05-20)
PROC: BW21YZZ Computerized Tomography (CT Scan) of Abdomen and Pelvis using Other Contrast (ICD-10-PCS; 2024-05-23)
PROC: BW21ZZZ Computerized Tomography (CT Scan) of Abdomen and Pelvis (ICD-10-PCS; 2024-05-23)
PROC: BW21YZZ Computerized Tomography (CT Scan) of Abdomen and Pelvis using Other Contrast (ICD-10-PCS; 2024-05-30)
PROC: BW2GYZZ Computerized Tomography (CT Scan) of Pelvic Region using Other Contrast (ICD-10-PCS; 2024-06-01)
PROC: 0D1L4Z4 Bypass Transverse Colon to Cutaneous, Percutaneous Endoscopic Approach (ICD-10-PCS; principal; 2024-06-10 19:30)
PROC: BW21YZZ Computerized Tomography (CT Scan) of Abdomen and Pelvis using Other Contrast (ICD-10-PCS; 2024-06-14)
DX: A41.9 Sepsis, unspecified organism (principal); K65.1 Peritoneal abscess; L02.211 Cutaneous abscess of abdominal wall; N82.3 Fistula of vagina to large intestine; N39.0 Urinary tract infection, site not specified; N17.9 Acute kidney failure, unspecified; C78.5 Secondary malignant neoplasm of large intestine and rectum; C79.82 Secondary malignant neoplasm of genital organs; C18.9 Malignant neoplasm of colon, unspecified; K92.1 Melena; N13.1 Hydronephrosis with ureteral stricture, not elsewhere classified; I82.612 Acute embolism and thrombosis of superficial veins of left upper extremity; I82.412 Acute embolism and thrombosis of left femoral vein; T80.89XA Other complications following infusion, transfusion and therapeutic injection, initial encounter; D64.89 Other specified anemias; D69.6 Thrombocytopenia, unspecified; N93.9 Abnormal uterine and vaginal bleeding, unspecified; E87.6 Hypokalemia; E83.42 Hypomagnesemia; D72.819 Decreased white blood cell count, unspecified; N73.6 Female pelvic peritoneal adhesions (postinfective); I87.2 Venous insufficiency (chronic) (peripheral); I12.9 Hypertensive chronic kidney disease with stage 1 through stage 4 chronic kidney disease, or unspecified chronic kidney disease; N18.9 Chronic kidney disease, unspecified; Z92.21 Personal history of antineoplastic chemotherapy; Z79.01 Long term (current) use of anticoagulants; B96.5 Pseudomonas (aeruginosa) (mallei) (pseudomallei) as the cause of diseases classified elsewhere; B96.20 Unspecified Escherichia coli [E. coli] as the cause of diseases classified elsewhere; B95.2 Enterococcus as the cause of diseases classified elsewhere; B96.89 Other specified bacterial agents as the cause of diseases classified elsewhere; R05.9 Cough, unspecified; Z90.710 Acquired absence of both cervix and uterus; Y65.8 Other specified misadventures during surgical and medical care

== ENCOUNTER 2024-08-04 18:07 | Inpatient (IN) | payer OTHER ==
[~2024-08-04] VITALS: Ht 160 cm; Wt 59.0 kg
[~2024-08-04 18:07] MED LIST changes: +DOLOGESIC 500-1 EACH PO; +GABAPENTIN300 MG PO; +INTEGRA PLUS C1 EACH PO; +LEVSIN0.125 MG PO; +PROTEINEX-18 LI30 ML PO; +TAMS0.4C PO; +TRAM1TAB98 PO
--- NOTE | 2024-08-04 18:18 | NUR ---
SE RECIBE PTE ALERTA Y ORIENTADA X3 EN SILLON DE EMILY. REFIERE HGB EN 6.0 EN LABORATORIO QUE LE REALIZARON EN EL ALICE DE [place]. DRA TURK SHELBI ORDENA PASAR POR ER PARA ADMISION. PTE DE DR MARITZA CHAVIRA. SE MIDE SV Y SE UBICA
--- NOTE | 2024-08-04 18:24 | NUR ---
PTE CANALIZADA DESDE CARPENTER HOGAR CON HL, REFIERE QUE ESTABA RECIBIENDO ANTIBIOTICOS.
[2024-08-04] MEDS ORDERED: FUROsemide 20 MG/2 ML VIAL IV SCH (19:15)
[2024-08-04 19:46] LABS: MEAN CELL VOLUME 86.4 fL (80.00-100.00); MEAN CORPUSCULAR HGB CONC 34.4 g/dl (32.0-36.0); RED BLOOD COUNT 2.28 M/uL (4.00-6.00); RED CELL DISTRIBUTION WIDTH 15.8 % (11.5-14.5)
[2024-08-04 19:53] LABS: ALBUMIN 2.8 gm/dL (3.4-5.0); BILIRUBIN TOTAL 0.23 mg/dL (0.3-1.2); CALCIUM 9.5 mg/dL (8.5-10.1); CREATININE SERUM 1.03 mg/dL (0.55-1.02); GFR 53.29; GLOBULINA 3.8 G/DL (2.4-3.5); MEAN CORPUSCULAR HEMOGLOBIN 29.8 pg (27.00-32.0); POTASSIUM 4.11 mEq/L (3.5-5.1); TOTAL PROTEIN 6.6 gm/dL (6.4-8.2)
[2024-08-04 19:55] LABS: HEMATOCRIT 19.7 % (36.0-45.00)
--- NOTE | 2024-08-04 19:55 | NUR ---
SE ORIENTA A PACIENTE SOBRE TRATAMIENTO MEDICO, REFIERE ENTENDER. SE REALIZAN MUESTRAS DE LABORATORIO BAJO MEDIDAS ASEPTICAS. SE COLECTAN MUESTRAS DE LABORATORIO PARA 3 UNIDADES DE PRBC, SE REALIZA DOCUMENTO DE REQUISION Y SE LLEVAN AL LABORATORIO. SE ENTREGA A VICTORINO LA CUAL NOTIFICA A DE [place] DE NISREEN DE AUXILIO M[place] LA CUAL INDICA QUE PACIENTE NO TIENE EXPENDIENTE. SE COLECTA MUESTRA DE TIPO Y HOLLIS Y SE LLEVA AL LABORATORIO PARA CARPENTER RECOGIDO. SE PROVEE CONSENTIMIENTO PARA TRANSFUSION DE NISREEN A PACIENTE, PACIENTE Y MEDICO FIRMAN DOCUMENTO. SE ANEJA AL EXPEDIENTE.
[2024-08-04 20:08] LABS: INR 1.03; PARTIAL THROMBOPLASTIN TIME 25.9 SECONDS (22.0-34.0); PROTHROMBIN TIME 11.2 SECONDS (9.0-11.5)
[2024-08-04 20:32] LABS: HEMOGLOBIN 6.8 g/dL (12.0-15.00); PLATELET COUNT 98 K/uL (150-450)
[2024-08-04] MEDS ORDERED: MEROPENEM 500 MG/VIAL VIAL IV SCH (20:57)
[2024-08-04] MEDS ORDERED: PANTOPRAZOLE SODIUM 40 MG/VIAL VIAL IV SCH (20:58)
[2024-08-04] MEDS ORDERED: TRAMADOL HCL 50 MG TABLET PO PRN (21:00)
[2024-08-04] MEDS ORDERED: TRAMADOL HCL 50 MG TABLET PO ONE (21:00)
[2024-08-04] MEDS ORDERED: 0.9 % SODIUM CHLORIDE 1,000 ML IV SCH (21:00)
[2024-08-04] MEDS ORDERED: ACETAMINOPHEN 500 MG GEL..CAP PO PRN (21:00)
[2024-08-04 23:51] VITALS: BP 96/60; O2SAT 95
[2024-08-05 03:20] VITALS: BP 102/66; O2SAT 100
[2024-08-05 05:43] LABS: ALBUMIN 2.6 gm/dL (3.4-5.0); ALKALINE PHOSPHATASE 64 U/L (50-136); ALT/SGPT 11 U/L (12-78); AST/SGOT 18 U/L (15-37); BILIRUBIN TOTAL 0.31 mg/dL (0.3-1.2); BLOOD UREA NITROGEN 9 mg/dL (7-18); BUN CREA RATIO 10 (7.0-25.0); CALCIUM 8.8 mg/dL (8.5-10.1); CARBON DIOXIDE 30 mEq/L (21-32); CHLORIDE 107 mmol/L (98-107); CREATININE SERUM 0.94 mg/dL (0.55-1.02); GFR 59.22; GLOBULINA 3.1 G/DL (2.4-3.5); GLUCOSE FASTING 96 mg/dL (65-100); OSMOLALITY SERUM 263 MOSM/KG (275-295); POTASSIUM 4.11 mEq/L (3.5-5.1); SODIUM 132 mmol/L (136-145); TOTAL PROTEIN 5.7 gm/dL (6.4-8.2)
[2024-08-05 07:55] VITALS: BP 110/76; O2SAT 98
[2024-08-05] MEDS ORDERED: SOD FERRIC GLUC COMPLX/SUCROSE 62.5 MG/5 ML AMPUL IV SCH (09:00)
[2024-08-05] MEDS ORDERED: FILGRASTIM-AAFI 300 MCG/0.5 ML SYRINGE SUBCUTANEO NR (09:00)
[2024-08-05 17:20] VITALS: BP 98/60; O2SAT 100
[2024-08-05] MEDS ORDERED: PANTOPRAZOLE SODIUM 40 MG/VIAL VIAL IV SCH (21:00)
[2024-08-06 01:58] VITALS: BP 94/57; O2SAT 97
[2024-08-06 04:07] LABS: HEMATOCRIT 32.8 % (36.0-45.00); HEMOGLOBIN 11.1 g/dL (12.0-15.00); MEAN CELL VOLUME 86.8 fL (80.00-100.00); MEAN CORPUSCULAR HEMOGLOBIN 29.3 pg (27.00-32.0); MEAN CORPUSCULAR HGB CONC 33.8 g/dl (32.0-36.0); PLATELET COUNT 169 K/uL (150-450); RED BLOOD COUNT 3.78 M/uL (4.00-6.00); RED CELL DISTRIBUTION WIDTH 15.1 % (11.5-14.5)
[2024-08-06 04:16] LABS: ALBUMIN 2.6 gm/dL (3.4-5.0); BILIRUBIN TOTAL 0.69 mg/dL (0.3-1.2); CALCIUM 8.6 mg/dL (8.5-10.1); CREATININE SERUM 0.92 mg/dL (0.55-1.02); GFR 60.7; GLOBULINA 3.1 G/DL (2.4-3.5); PHOSPHOROUS 2.7 mg/dL (2.5-4.9); POTASSIUM 3.74 mEq/L (3.5-5.1); TOTAL PROTEIN 5.7 gm/dL (6.4-8.2)
[2024-08-06 04:24] LABS: MAGNESIUM 1.1 mg/dL (1.8-2.4)
[2024-08-06 09:48] VITALS: BP 100/57; O2SAT 97
[2024-08-06] MEDS ORDERED: SODIUM CHLORIDE 0.45 % 1,000 ML IV SCH (10:00)
[2024-08-06] MEDS ORDERED: MAGNESIUM SULFATE IN WATER 4 GM/100 ML PIGGYBACK IV NR (12:00)
[2024-08-06 18:09] VITALS: BP 90/55
[2024-08-07 02:11] VITALS: BP 106/61; O2SAT 100
[2024-08-07 09:50] VITALS: BP 100/57; O2SAT 97
[2024-08-07 19:56] VITALS: BP 107/62; O2SAT 98
[2024-08-08 01:32] VITALS: BP 112/66
[2024-08-08 09:16] VITALS: BP 127/57
[2024-08-08 17:21] LABS: PH,URINE 5.5 (5.0-8.0); URINE APPEARANCE Clear; URINE BILIRRUBIN Negative (NEGATIVE); URINE BLOOD Large; URINE COLOR Yellow; URINE GLUCOSE Negative (NEGATIVE); URINE LEUKOCYTE Negative; URINE NITRATE Negative; URINE PROTEIN 30 (NEGATIVE); URINE UROBILINOGEN 0.2 E.U./dl
[2024-08-08 17:24] LABS: URINE BACTERIA 117.4 uL (0.0-1933); URINE EPITHELIAL CELLS 17.5 uL (0.0-38.8); URINE RBC 2357.1 uL (0.0-20.8); URINE WBC 135.8 uL (0.0-23.2)
[2024-08-08 17:25] VITALS: BP 146/85; O2SAT 98
[2024-08-08 17:30] LABS: HEMATOCRIT 37.4 % (36.0-45.00); HEMOGLOBIN 12.1 g/dL (12.0-15.00); MEAN CORPUSCULAR HEMOGLOBIN 28.7 pg (27.00-32.0); MEAN CORPUSCULAR HGB CONC 32.2 g/dl (32.0-36.0); PLATELET COUNT 371 K/uL (150-450); RED CELL DISTRIBUTION WIDTH 16.1 % (11.5-14.5)
[2024-08-08 17:44] LABS: ALBUMIN 2.8 gm/dL (3.4-5.0); BILIRUBIN TOTAL 0.5 mg/dL (0.3-1.2); CALCIUM 8.6 mg/dL (8.5-10.1); CREATININE SERUM 0.86 mg/dL (0.55-1.02); GFR 65.62; GLOBULINA 3.4 G/DL (2.4-3.5); MAGNESIUM 1.6 mg/dL (1.8-2.4); PHOSPHOROUS 3.2 mg/dL (2.5-4.9); POTASSIUM 3.71 mEq/L (3.5-5.1); TOTAL PROTEIN 6.2 gm/dL (6.4-8.2)
[2024-08-08 18:02] LABS: URINE CAST 0.58 uL (0.0-1.40); URINE KETONE 80 (NEGATIVE)
[2024-08-08] MEDS ORDERED: MAGNESIUM SULFATE IN WATER 50 ML IV NR (20:00)
[2024-08-09 01:27] VITALS: BP 126/77
[2024-08-09 08:24] VITALS: BP 102/61; O2SAT 94
[2024-08-09 17:54] VITALS: BP 123/71; O2SAT 97
[2024-08-10 01:10] VITALS: BP 122/72
[2024-08-10 08:27] VITALS: BP 112/66; O2SAT 100
[2024-08-10] MEDS ORDERED: PANTOPRAZOLE SODIUM 40 MG/VIAL VIAL IV SCH (09:00)
[2024-08-10] MEDS ORDERED: POLYETHYLENE GLYCOL 3350 238 GM POWDER PO ONE (12:00)
[2024-08-10 17:02] VITALS: BP 155/74; O2SAT 100
[2024-08-11 00:40] VITALS: BP 128/66
[2024-08-11 07:00] LABS: ALBUMIN 2.6 gm/dL (3.4-5.0); BILIRUBIN TOTAL 0.35 mg/dL (0.3-1.2); CALCIUM 8.3 mg/dL (8.5-10.1); CREATININE SERUM 0.71 mg/dL (0.55-1.02); GFR 81.86; GLOBULINA 3.1 G/DL (2.4-3.5); PHOSPHOROUS 2.6 mg/dL (2.5-4.9); POTASSIUM 3.2 mEq/L (3.5-5.1); TOTAL PROTEIN 5.7 gm/dL (6.4-8.2)
[2024-08-11 07:04] LABS: HEMATOCRIT 33.1 % (36.0-45.00); HEMOGLOBIN 11.4 g/dL (12.0-15.00); MEAN CELL VOLUME 87.2 fL (80.00-100.00); MEAN CORPUSCULAR HEMOGLOBIN 29.9 pg (27.00-32.0); MEAN CORPUSCULAR HGB CONC 34.3 g/dl (32.0-36.0); PLATELET COUNT 393 K/uL (150-450); RED CELL DISTRIBUTION WIDTH 15.9 % (11.5-14.5)
[2024-08-11 07:15] LABS: MAGNESIUM 1.1 mg/dL (1.8-2.4)
[2024-08-11] MEDS ORDERED: MAGNESIUM SULFATE IN WATER 4 GM/100 ML PIGGYBACK IV NR (08:00)
[2024-08-11 08:38] VITALS: BP 114/72; O2SAT 97
[2024-08-11] MEDS ORDERED: POTASSIUM CHLORIDE 20MEQ/100ML H2O PB IV NR (11:00)
[2024-08-11] MEDS ORDERED: MIDAZOLAM HCL 2 MG/2 ML VIAL IV ONE (13:00)
[2024-08-11] MEDS ORDERED: fentaNYL CITRATE 50 MCG/ML AMPUL IV ONE (13:00)
[2024-08-11] MEDS ORDERED: DIPHENHYDRAMINE HCL 50 MG/ML VIAL 1ML IV ONE (13:00)
[2024-08-11 16:47] VITALS: BP 109/67; O2SAT 99
[2024-08-12 01:03] VITALS: BP 134/70
[2024-08-12 08:01] VITALS: BP 108/65; O2SAT 97
[2024-08-12] MEDS ORDERED: POLYETHYLENE GLYCOL 3350 17 GM BLIST.PACK PO SCH (09:00)
[2024-08-12] MEDS ORDERED: INTEGRA PLUS C1 EACH PO (12:13)
== END 2024-08-12 14:16 | disposition home or self-care (01) | DRG 812 ==
LOC: ER 18:09 → MEDI 22:49 → MEDJ 22:49
PROVIDERS: General Practice; ADMIT Internal Medicine; ATTEND Internal Medicine
PROC: BW21ZZZ Computerized Tomography (CT Scan) of Abdomen and Pelvis (ICD-10-PCS; principal; 2024-08-04)
PROC: 30233N1 Transfusion of Nonautologous Red Blood Cells into Peripheral Vein, Percutaneous Approach (ICD-10-PCS; 2024-08-05)
PROC: 30233L1 Transfusion of Nonautologous Fresh Plasma into Peripheral Vein, Percutaneous Approach (ICD-10-PCS; 2024-08-05)
PROC: 8E0ZXY6 Isolation (ICD-10-PCS; 2024-08-05)
PROC: 0DB78ZX Excision of Stomach, Pylorus, Via Natural or Artificial Opening Endoscopic, Diagnostic (ICD-10-PCS; 2024-08-08)
PROC: 0DBK8ZZ Excision of Ascending Colon, Via Natural or Artificial Opening Endoscopic (ICD-10-PCS; 2024-08-11)
PROC: 0DJD8ZZ Inspection of Lower Intestinal Tract, Via Natural or Artificial Opening Endoscopic (ICD-10-PCS; 2024-08-11)
DX: D64.89 Other specified anemias (principal); K92.2 Gastrointestinal hemorrhage, unspecified; N39.0 Urinary tract infection, site not specified; N82.4 Other female intestinal-genital tract fistulae; E87.1 Hypo-osmolality and hyponatremia; D61.818 Other pancytopenia; B96.29 Other Escherichia coli [E. coli] as the cause of diseases classified elsewhere; Z86.718 Personal history of other venous thrombosis and embolism; C54.1 Malignant neoplasm of endometrium